=== PATIENT | female | born 1980 | race Caucasian/White ===

== ENCOUNTER 2016-09-17 15:01 | Inpatient (IN) ==
--- NOTE | 2016-09-17 15:11 | Emergency Department Note ---
Disposition Clinical Impression: Suicidal ideation Disposition: Admitted As Inpatient Referrals: NO,PCP [Primary Care Provider] - Forms: ED Satisfaction Letter Psych HPI - General Chief Complaint: ED Psychiatric Symptoms Stated Complaint: SI Source: EMS Mode of arrival: ambulatory Limitations: no limitations Nursing Notes Reviewed: Yes Vital Signs Reviewed: Yes - History of Present Illness Pt complaint: suicidal ideation, feels depressed If medical clearance, reason: psychiatric condition Onset (ago): day(s) (2) Duration: constant History of similar episodes: Yes Improves with: none Worsens with: none Context: significant life stressor (She was in senior care and if her somewhat of press charges she would have overdosed on pain pills) Alleged intoxication: No Associated Psychiatric Symptoms: depression, suicidal ideation Associated symptoms: Reports: denies other symptoms Traumatic symptoms: denies traumatic injury Treatments prior to arrival: other ([place] slipped by her psychiatrist) Self harm or harm to others: admits thoughts of self harm, has plan - Related Data Home Medications Medication Instructions Recorded Confirmed ClonazePAM [Klonopin] 1 mg PO TID PRN 03/11/15 09/17/16 Buspirone HCl [Buspar] 15 mg PO TID 09/17/16 09/17/16 Meloxicam [Meloxicam] 7.5 mg PO DAILY 09/17/16 09/17/16 Trazodone HCl 100 - 200 mg PO HS 09/17/16 09/17/16 Vortioxetine Hydrobromide 10 mg PO DAILY 09/17/16 09/17/16 [Trintellix] Allergies Allergy/AdvReac Type Severity Reaction Status Date / Time fluconazole [From Diflucan] Allergy Redness of Verified 09/17/16 15:08 Skin oxcarbazepine Allergy Redness of Verified 09/17/16 15:08 [From Trileptal] Skin All systems ED: reviewed and negative except as stated. Cardiovascular: Denies: chest pain Gastrointestinal: Reports: nausea Past Medical History - Past Medical History Source: patient, old records reviewed, nursing notes reviewed Medical history: Reports: no medical history Surgical history: Reports: non-contributory, cholecystectomy Psychiatric history: Reports: anxiety, depression PH[employer] history: Reports: no PH[employer]ER history - Social History Smoking Status: Current every day smoker Smokeless Tobacco Status: No Alcohol use: Reports: rarely Drug use: Reports: none Physical Exam - General Limitations: no limitations General appearance: alert, anxious - Head Head exam: atraumatic, normocephalic, normal inspection - Eye Eye exam: Present: normal appearance, PERRL, EOMI - Expanded Eye Exam Pupils: Left: reactive - ENT ENT exam: normal exam, normal oropharynx, mucous membranes moist - Expanded ENT Exam External ear exam: Present: normal external inspection Mouth exam: Present: normal external inspection Teeth exam: Present: normal inspection Throat exam: Present: normal inspection - Neck Neck exam: Present: normal inspection, full ROM, trachea midline - Chest Chest inspection: Present: normal inspection, symmetric chest wall rise - Respiratory Respiratory exam: Present: normal lung sounds bilaterally - Cardiovascular Cardiovascular exam: Present: regular rate, normal rhythm, normal heart sounds - Abdominal Exam Abdominal exam: Present: soft, Non-Tender. Absent: tenderness, distention, guarding, rebound, rigidity - Extremities Exam Extremities exam: Present: normal inspection, full ROM. Absent: tenderness, pedal edema - Expanded Upper Extremity Exam Shoulder exam: Present: normal inspection, full ROM Arm exam: Present: normal inspection, full ROM Elbow exam: Present: normal inspection, full ROM Forearm/Wrist exam: Present: normal inspection, full ROM Hand exam: Present: normal inspection, full ROM Vascular exam: Normal: capillary refill, radial pulse - Expanded Lower Extremity Exam Hip/Pelvis exam: Present: normal inspection, full ROM Upper leg exam: Present: normal inspection, full ROM Knee exam: Present: normal inspection, full ROM Lower leg exam: Present: normal inspection, full ROM Ankle exam: Present: normal inspection, full ROM Foot/toe exam: Present: normal inspection, full ROM Neurovascular/Tendon exam: Absent: motor deficit, sensory deficit, tendon deficit - Back Exam Back exam: Present: normal inspection, full ROM. Absent: tenderness - Neurological Exam Neurological exam: Present: alert, oriented X3 - Expanded Neurological Exam Patient oriented to: Present: person, place, time Coma Scale Eye Opening: Spontaneous Coma Scale Motor Response: Obeys Commands Coma Scale Verbal Response: Oriented Coma Scale Total: 15 - Psychiatric Psychiatric exam: Present: normal affect, normal mood - Skin Skin exam: Present: warm, dry, intact, normal color Course Vital Signs Temperature 98.1 F 09/17/16 15:02 Pulse Rate 79 09/17/16 15:02 Respiratory Rate 16 09/17/16 15:02 Blood Pressure 104/60 09/17/16 15:02 O2 Sat by Pulse Oximetry 99 09/17/16 15:02 Temperature 98.1 F 09/17/16 15:02 Pulse Rate 79 09/17/16 15:02 Respiratory Rate 16 09/17/16 15:02 Blood Pressure 104/60 09/17/16 15:02 O2 Sat by Pulse Oximetry 99 09/17/16 15:02 Oxygen Delivery Oxygen Delivery Room Air Psych - Lab Data Result diagrams: 09/17/16 15:36 09/17/16 15:36 Lab Results 09/17/16 09/17/16 09/17/16 Range/Units 15:22 15:22 15:22 WBC (4.3-11.1) K/mcL RBC (3.82-4.97) M/mcL Hgb (11.5-15.4) g/dL Hct (35.3-44.9) % MCV (83.0-100.0) fL MCH (28.0-33.3) pg MCHC (31.6-35.5) g/dL RDW (11.5-14.5) % Plt Count (140-400) K/mcL MPV (9.4-12.4) fL Immature Gran % (0-4) % Seg Neutrophils % % Lymphocytes % % Monocytes % % Eosinophils % % Basophils % % Neutrophils # (1.6-8.9) K/mcL Lymphocytes # (0.6-4.6) K/mcL Monocytes # (0.0-1.3) K/mcL Eosinophils # (0.0-0.6) K/mcL Basophils # (0.0-0.2) K/mcL Sodium (136-145) mEq/L Potassium (3.5-4.5) mEq/L Chloride (98-109) mEq/L Carbon Dioxide (19-29) mEq/L BUN (7-20) mg/dL Creatinine (0.57-1.11) mg/dL Est GFR ( Amer) (> 60) Est GFR (Non-Af Amer) (> 60) BUN/Creatinine Ratio (6-26) Glucose (70-99) mg/dL Calculated Osmolality (280-300) Calcium (8.6-10.8) mg/dL TSH (0.350-4.840) mcIU/mL Urine Color Yellow (Yellow) Urine Clarity Clear (Clear) Urine pH 6.5 (5.0-8.0) pH Units Ur Specific [place] 1.026 H (1.010-1.025) Urine Protein Negative (Neg-Trace) mg/dL Urine Glucose (UA) Normal (Normal) mg/dL Urine Ketones Trace H (Negative) mg/dL Urine Blood Negative (Negative) Urine Nitrite Negative (Negative) Urine Bilirubin Negative (Negative) Urine Urobilinogen Normal (Normal) mg/dL Ur Leukocyte Esterase Negative (Negative) Urine Test Negative (Negative) Salicylates (15-30) mg/dL Urine Opiates Screen Positive H (Cykhnx=230) ng/mL Acetaminophen (10-30) mcg/mL Ur Barbiturates Screen Negative (Xpdldg=587) ng/mL Ur Phencyclidine Scrn Negative (Cutoff=25) ng/mL Ur Amphetamines Screen Negative (Dbkwsi=2824) ng/mL U Benzodiazepines Scrn Positive H (Ywdxyr=354) ng/mL Urine Cocaine Screen Negative (Cutoff= 300) ng/mL U Marijuana (THC) Screen Negative (Cutoff = 50) ng/mL Ethyl Alcohol (0-10) mg/dL 09/17/16 09/17/16 Range/Units 15:36 15:36 WBC 8.9 (4.3-11.1) K/mcL RBC 5.08 H (3.82-4.97) M/mcL Hgb 14.7 (11.5-15.4) g/dL Hct 45.1 H (35.3-44.9) % MCV 88.8 (83.0-100.0) fL MCH 28.9 (28.0-33.3) pg MCHC 32.6 (31.6-35.5) g/dL RDW 12.3 (11.5-14.5) % Plt Count 162 (140-400) K/mcL MPV 10.2 (9.4-12.4) fL Immature Gran % 0.3 (0-4) % Seg Neutrophils % 71.7 % Lymphocytes % 19.5 % Monocytes % 6.8 % Eosinophils % 0.9 % Basophils % 0.8 % Neutrophils # 6.4 (1.6-8.9) K/mcL Lymphocytes # 1.7 (0.6-4.6) K/mcL Monocytes # 0.6 (0.0-1.3) K/mcL Eosinophils # 0.1 (0.0-0.6) K/mcL Basophils # 0.1 (0.0-0.2) K/mcL Sodium 138 (136-145) mEq/L Potassium 4.1 (3.5-4.5) mEq/L Chloride 106 (98-109) mEq/L Carbon Dioxide 26 (19-29) mEq/L BUN 16 (7-20) mg/dL Creatinine 0.94 (0.57-1.11) mg/dL Est GFR ( Amer) > 60 (> 60) Est GFR (Non-Af Amer) > 60 (> 60) BUN/Creatinine Ratio 17 (6-26) Glucose 89 (70-99) mg/dL Calculated Osmolality 287 (280-300) Calcium 9.1 (8.6-10.8) mg/dL TSH 0.442 (0.350-4.840) mcIU/mL Urine Color (Yellow) Urine Clarity (Clear) Urine pH (5.0-8.0) pH Units Ur Specific [place] (1.010-1.025) Urine Protein (Neg-Trace) mg/dL Urine Glucose (UA) (Normal) mg/dL Urine Ketones (Negative) mg/dL Urine Blood (Negative) Urine Nitrite (Negative) Urine Bilirubin (Negative) Urine Urobilinogen (Normal) mg/dL Ur Leukocyte Esterase (Negative) Urine Test (Negative) Salicylates < 5.0 L (15-30) mg/dL Urine Opiates Screen (Hfznnn=895) ng/mL Acetaminophen 3.0 L (10-30) mcg/mL Ur Barbiturates Screen (Mbcgze=554) ng/mL Ur Phencyclidine Scrn (Cutoff=25) ng/mL Ur Amphetamines Screen (Nwvgdp=3741) ng/mL U Benzodiazepines Scrn (Xdtcex=314) ng/mL Urine Cocaine Screen (Cutoff= 300) ng/mL U Marijuana (THC) Screen (Cutoff = 50) ng/mL Ethyl Alcohol < 10 (0-10) mg/dL Psychiatric Medical Clearance - Medical Clearance Checklist Medical History: No Social History Section defined Current Vitals: Last Vital Signs Temp 98.1 F 09/17/16 15:02 Pulse 79 09/17/16 15:02 Resp 16 09/17/16 15:02 BP 104/60 06/30/17 15:02 Pulse Ox 99 09/17/16 15:02 Psychiatric Lab Panel: Drug Levels and Toxicity 09/17/16 09/17/16 15:22 15:36 Urine Opiates Screen Positive H Acetaminophen 3.0 L Ur Barbiturates Screen Negative Ur Phencyclidine Scrn Negative Ur Amphetamines Screen Negative U Benzodiazepines Scrn Positive H Urine Cocaine Screen Negative U Marijuana (THC) Screen Negative Ethyl Alcohol < 10 Abnormal Labs: Abnormal lab results RBC 5.08 M/mcL (3.82-4.97) H 09/17/16 15:36 Hct 45.1 % (35.3-44.9) H 09/17/16 15:36 Ur Specific [place] 1.026 (1.010-1.025) H 09/17/16 15:22 Urine Ketones Trace mg/dL (Negative) H 09/17/16 15:22 Salicylates < 5.0 mg/dL (15-30) L 09/17/16 15:36 Urine Opiates Screen Positive ng/mL (Acbhkn=987) H 09/17/16 15:22 Acetaminophen 3.0 mcg/mL (10-30) L 09/17/16 15:36 U Benzodiazepines Scrn Positive ng/mL (Vemnov=527) H 09/17/16 15:22 Statement of Medical Clearance: I have evaluated the patient, reviewed diagnostic information, and certify that the patient's medical condition is sufficiently stable that transfer to the psychiatric unit does not pose a significant risk of deterioration.
[2016-09-17 15:48] LABS: Bilirubin,Urine Negative (Negative); Blood,Urine Negative (Negative); Clarity,Urine Clear (Clear); Color,Urine Yellow (Yellow); Glucose,Urine (UA) Normal (Normal); Ketones,Urine Trace mg/dL (Negative); Leukocyte Esterase,Urine Negative (Negative); Nitrite,Urine Negative (Negative); PH,Urine 6.5 pH Units (5.0-8.0); Protein,Urine Negative (Neg-Trace); Specific Gravity,Urine 1.026 (1.010-1.025); Urobilinogen,Urine Normal (Normal)
[2016-09-17 15:49] LABS: Basophils # 0.1 K/mcL (0.0-0.2); Basophils % 0.8 %; Eosinophils # 0.1 K/mcL (0.0-0.6); Eosinophils % 0.9 %; Hematocrit 45.1 % (35.3-44.9); Hemoglobin 14.7 g/dL (11.5-15.4); Immature Granulocytes % 0.3 % (0-4); Lymphocytes # 1.7 K/mcL (0.6-4.6); Lymphocytes % 19.5 %; Mean Corpuscular HGB Conc 32.6 g/dL (31.6-35.5); Mean Corpuscular Hemoglobin 28.9 pg (28.0-33.3); Mean Corpuscular Volume 88.8 fL (83.0-100.0); Mean Platelet Volume 10.2 fL (9.4-12.4); Monocytes # 0.6 K/mcL (0.0-1.3); Monocytes % 6.8 %; Neutrophils # 6.4 K/mcL (1.6-8.9); Platelet Count 162 K/mcL (140-400); Red Blood Count 5.08 M/mcL (3.82-4.97); Red Cell Distribution Width 12.3 % (11.5-14.5); Segmented Neutrophils % 71.7 %
[2016-09-17 15:54] LABS: Amphetamine Screen,Urine Negative ng/mL (Cutoff=1000); Barbiturate Screen,Urine Negative ng/mL (Cutoff=200); Benzodiazepines Screen,Urine Positive ng/mL (Cutoff=200); Cannabinoid Screen,Urine Negative ng/mL (Cutoff = 50); Cocaine Screen,Urine Negative ng/mL (Cutoff= 300); Opiate Screen,Urine Positive ng/mL (Cutoff=300); Phencyclidine Screen,Urine Negative ng/mL (Cutoff=25)
[2016-09-17 16:04] LABS: BUN/Creatinine Ratio 17 (6-26); Blood Urea Nitrogen 16 mg/dL (7-20); Calcium 9.1 mg/dL (8.6-10.8); Carbon Dioxide 26 mEq/L (19-29); Chloride 106 mEq/L (98-109); Glucose 89 mg/dL (70-99); Osmolality,Calculated 287 (280-300); Potassium 4.1 mEq/L (3.5-4.5); Sodium 138 mEq/L (136-145); eGFR For African Americans > 60 (> 60); eGFR For Non-African Americans > 60 (> 60)
[2016-09-17 16:06] LABS: Ethanol < 10 mg/dL (0-10); Salicylate < 5.0 mg/dL (15-30)
[2016-09-17 16:26] LABS: Thyroid Stimulating Hormone 0.442 mcIU/mL (0.350-4.840)
[2016-09-17] MEDS ORDERED: *HR* LORazepam 1 MG TABLET PO PRN (18:49)
[2016-09-17] MEDS ORDERED: Ibuprofen 400 MG TABLET PO PRN (18:49)
[2016-09-17] MEDS ORDERED: hydrOXYzine pamoate 25 MG CAPSULE PO PRN (18:49)
[2016-09-17] MEDS ORDERED: Mag Hydrox/Al Hydrox/Simeth 30 ML UDC PO PRN (18:49)
[2016-09-17] MEDS ORDERED: MOM Conc 10 ML UD.LIQ PO PRN (18:49)
[2016-09-17] MEDS ORDERED: traZODone 50 MG TABLET PO PRN (18:49)
[2016-09-17] MEDS ORDERED: *HR* LORazepam 2 MG/ML VIAL IM PRN (18:49)
[2016-09-17] MEDS ORDERED: Haloperidol Lactate 5 MG/ML VIAL IM PRN (18:49)
[2016-09-18] MEDS ORDERED: TRINTELLIX PO SCH (09:00)
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
[2016-09-18] MEDS: TRINTELLIX PO SCH (14:19)
[2016-09-18] MEDS: clonazePAM 1 MG TABLET PO PRN ×2 (14:25→21:07)
[2016-09-18] MEDS ORDERED: traZODone 50 MG TABLET PO SCH (21:00)
[2016-09-19] MEDS: clonazePAM 1 MG TABLET PO PRN (08:45)
[2016-09-19] MEDS: TRINTELLIX PO SCH (08:45)
[2016-09-19 09:45] VITALS: BP 94/60
--- NOTE | 2016-09-19 13:28 | Discharge Summary ---
Date of Encounter: 09/19/16 Time of Encounter: 13:00 Diagnosis - Discharge Diagnosis (1) Major depressive disorder, recurrent severe without psychotic features Status: Acute (2) Anxiety Status: Chronic (3) Borderline personality disorder Status: Chronic Medications - Discharge Medications ClonazePAM [Klonopin] 1 mg PO TID PRN 03/11/15 [History] Buspirone HCl [Buspar] 15 mg PO TID 09/17/16 [History] Meloxicam 7.5 mg PO DAILY 09/17/16 [History] Trazodone HCl 100 - 200 mg PO HS 09/17/16 [History] Vortioxetine Hydrobromide [Trintellix] 10 mg PO DAILY 09/17/16 [History] Patient Taking Own Medication 0 each PO DAILY each 09/19/16 [Rx] Allergies fluconazole [From Diflucan] Allergy (Verified 09/17/16 15:08) Redness of Skin burn oxcarbazepine [From Trileptal] Allergy (Verified 09/17/16 15:08) Redness of Skin burn Provider Date of admission: 09/17/16 18:21 Primary care physician: PCP KASSIE Discharging clinician: Mary Colon Assessment and Plan - Patient/Caregiver Discharge Instructions Activity: resume usual activities as tolerated Diet: regular diet - Follow up Plan Follow up with: KASSIE,PCP [Primary Care Provider] - Overall status at discharge: patient is back to baseline Disposition: Home, Self-Care Hospital Course Hospital course: Ms. Bridges is a 36 year old female with a history of depression, anxiety and borderline personality disorder who presented to the hospital having overdosed a few days prior to her about medication and was voicing suicidal ideations prior to admission. She was admitted to [facility] for psychiatric stabilization. Patient was incorporated into the therapeutic milieu and offer group and individual as well as recreational therapies. Patient was also offered psychoeducational materials and supportive therapy. She was placed on suicide precautions and close observation per unit protocol. Patient denied suicidal ideation on admission but did report a lot of increased stressors. Patient's significant other was contacted and all of stockpiled medication was removed from the home. Patient's girlfriend will from this point on distributing the patient's meds for her. There is also a gun in the home that was removed. Throughout the course of the hospital stay the patient's mood improved. She states that a big part of her stress was her court date on Tuesday and feeling upset about her son not having contact with her anymore. She is looking forward to spending the next week with her significant other and she denies any suicidal or homicidal ideation or plan. Her movements were continued during the hospital stay. She denied desire to change current medications because most of her stress was from recent family issues and not related to medication issues. She will be discharged in stable condition into the care of her significant other and outpatient follow-up appointments will be moved forward in order to monitor the patient more closely. She does have a follow-up at [facility] for her therapy. - Time Spent with Patient Total time spent providing and/or coordinating discharge services: Greater than 30 minutes Quality - Multiple Antipsychotics Patient discharged on 2 or more antipsychotic medications: No Procedures - Procedures Procedures: Medication Management, Crisis Stabilization, Supportive Therapy, Group Therapy, Psychoeducational Therapy Mental Status Exam - Mental Status Exam Patient orientation: Yes Person, Yes Time, Yes Place Level of alertness: Alert Patient appearance: Appropriate, Well Groomed Behavior: calm, cooperative Psychomotor activity: Normal Eye contact: Maintains Eye Contact Mood description: Euthymic/stable Affect description: congruent with mood, full range Speech pattern: Normal rate, Normal rhythm, Normal tone Speech Volume: Normal Thought process: Intact, Linear, Goal Oriented Thought Content: No Suicidal ideation, No Homicidal ideation, No Overt delusions Perceptual Disturbances: No Auditory hallucinations, No Visual hallucinations Judgment: Limited Insight: Partial
== END 2016-09-19 14:35 | disposition home or self-care (01) ==
LOC: EMEROO 15:01 → 1ANU 18:21 → SUATTDRO 18:21 → 1ANU 18:25
PROVIDERS: ADMIT Psychiatry & Neurology Psychiatry; ATTEND Student in an Organized Health Care Education/Training Program

== ENCOUNTER 2017-10-17 20:12 | Observation (INO) ==
--- NOTE | 2017-10-17 20:20 | Emergency Department Note ---
Overdose - [facility] Narrative Medical decision making narrative: Poison control center called. They recommended basic tox workup including EKG, aspirin, Tylenol, alcohol, urinalysis and urine drug screen, urine . They also recommended supportive care. We will perform workup, suicide precautions in place. Patient will need to be admitted for further care. - Medical Records Medical records reviewed: Yes I reviewed the patient's medical records. - Lab Data Lab results reviewed: Yes I reviewed the patient's lab results. Result diagrams: 10/17/17 20:20 10/17/17 20:20 Lab Results 10/17/17 10/17/17 10/17/17 Range/Units 20:20 20:20 20:20 WBC 8.0 (4.3-11.1) K/mcL RBC 4.86 (3.82-4.97) M/mcL Hgb 14.7 (11.5-15.4) g/dL Hct 42.7 (35.3-44.9) % MCV 87.9 (83.0-100.0) fL MCH 30.2 (28.0-33.3) pg MCHC 34.4 (31.6-35.5) g/dL RDW 12.7 (11.5-14.5) % Plt Count 141 (140-400) K/mcL MPV 9.9 (9.4-12.4) fL Immature Gran % 0.3 (0-4) % Seg Neutrophils % 54.6 % Lymphocytes % 35.1 % Monocytes % 8.3 % Eosinophils % 0.9 % Basophils % 0.8 % Neutrophils # 4.4 (1.6-8.9) K/mcL Lymphocytes # 2.8 (0.6-4.6) K/mcL Monocytes # 0.7 (0.0-1.3) K/mcL Eosinophils # 0.1 (0.0-0.6) K/mcL Basophils # 0.1 (0.0-0.2) K/mcL Sodium 137 (136-145) mEq/L Potassium 3.3 L (3.5-5.1) mEq/L Chloride 106 (98-107) mEq/L Carbon Dioxide 22 L (23-29) mEq/L BUN 12 (6-20) mg/dL Creatinine 0.88 (0.60-1.20) mg/dL Est GFR ( Amer) > 60 (> 60) Est GFR (Non-Af Amer) > 60 (> 60) BUN/Creatinine Ratio 14 (6-26) Glucose 184 H (70-105) mg/dL Calculated Osmolality 289 (280-300) Calcium 9.1 (8.6-10.3) mg/dL Total Bilirubin 0.6 (0.3-1.0) mg/dL Direct Bilirubin 0.1 (0.0-0.2) mg/dL Indirect Bilirubin 0.5 (0.0-1.2) mg/dL AST 17 (13-39) Units/L ALT 16 (7-52) Units/L Alkaline Phosphatase 65 (34-104) Units/L Serum Total Protein 6.5 (6.4-8.9) g/dL Albumin 4.2 (3.5-5.7) g/dL Globulin 2.3 L (2.4-3.5) g/dL Albumin/Globulin Ratio 1.8 (1.1-2.2) Urine Color (Yellow) Urine Clarity (Clear) Urine pH (5.0-8.0) pH Units Ur Specific [place] (1.010-1.025) Urine Protein (Neg-Trace) mg/dL Urine Glucose (UA) (Normal) mg/dL Urine Ketones (Negative) mg/dL Urine Blood (Negative) Urine Nitrite (Negative) Urine Bilirubin (Negative) Urine Urobilinogen (Normal) mg/dL Ur Leukocyte Esterase (Negative) Urine Microscopic RBC (0-3) per hpf Urine Microscopic WBC (0-3) per hpf Ur Squamous Epith Cells (None-Few) per lpf Urine Bacteria (None-Few) per hpf Hyaline Casts (None-Few) per lpf Urine Test (Negative) Salicylates < 2.5 L (15.0-30.0) mg/dL Urine Opiates Screen Positive H (Zlcjfv=129) ng/mL Acetaminophen < 10 L (10-20) mcg/mL Ur Barbiturates Screen Negative (Rdohxv=061) ng/mL Ur Phencyclidine Scrn Negative (Cutoff=25) ng/mL Ur Amphetamines Screen Negative (Doebht=1657) ng/mL U Benzodiazepines Scrn Positive H (Trclxo=222) ng/mL Urine Cocaine Screen Negative (Cutoff= 300) ng/mL U Marijuana (THC) Screen Negative (Cutoff = 50) ng/mL Ur Drug Screen Interp See Below Ethyl Alcohol < 10 (Less than 10) mg/dL 10/17/17 10/17/17 Range/Units 21:00 21:00 WBC (4.3-11.1) K/mcL RBC (3.82-4.97) M/mcL Hgb (11.5-15.4) g/dL Hct (35.3-44.9) % MCV (83.0-100.0) fL MCH (28.0-33.3) pg MCHC (31.6-35.5) g/dL RDW (11.5-14.5) % Plt Count (140-400) K/mcL MPV (9.4-12.4) fL Immature Gran % (0-4) % Seg Neutrophils % % Lymphocytes % % Monocytes % % Eosinophils % % Basophils % % Neutrophils # (1.6-8.9) K/mcL Lymphocytes # (0.6-4.6) K/mcL Monocytes # (0.0-1.3) K/mcL Eosinophils # (0.0-0.6) K/mcL Basophils # (0.0-0.2) K/mcL Sodium (136-145) mEq/L Potassium (3.5-5.1) mEq/L Chloride (98-107) mEq/L Carbon Dioxide (23-29) mEq/L BUN (6-20) mg/dL Creatinine (0.60-1.20) mg/dL Est GFR ( Amer) (> 60) Est GFR (Non-Af Amer) (> 60) BUN/Creatinine Ratio (6-26) Glucose (70-105) mg/dL Calculated Osmolality (280-300) Calcium (8.6-10.3) mg/dL Total Bilirubin (0.3-1.0) mg/dL Direct Bilirubin (0.0-0.2) mg/dL Indirect Bilirubin (0.0-1.2) mg/dL AST (13-39) Units/L ALT (7-52) Units/L Alkaline Phosphatase (34-104) Units/L Serum Total Protein (6.4-8.9) g/dL Albumin (3.5-5.7) g/dL Globulin (2.4-3.5) g/dL Albumin/Globulin Ratio (1.1-2.2) Urine Color Yellow (Yellow) Urine Clarity Clear (Clear) Urine pH 6.0 (5.0-8.0) pH Units Ur Specific [place] 1.022 (1.010-1.025) Urine Protein 30 H (Neg-Trace) mg/dL Urine Glucose (UA) Normal (Normal) mg/dL Urine Ketones Negative (Negative) mg/dL Urine Blood Negative (Negative) Urine Nitrite Negative (Negative) Urine Bilirubin Small H (Negative) Urine Urobilinogen Normal (Normal) mg/dL Ur Leukocyte Esterase Negative (Negative) Urine Microscopic RBC 3-5 H (0-3) per hpf Urine Microscopic WBC 0-3 (0-3) per hpf Ur Squamous Epith Cells Many H (None-Few) per lpf Urine Bacteria None Seen (None-Few) per hpf Hyaline Casts None Seen (None-Few) per lpf Urine Test Negative (Negative) Salicylates (15.0-30.0) mg/dL Urine Opiates Screen (Klmmeg=614) ng/mL Acetaminophen (10-20) mcg/mL Ur Barbiturates Screen (Wtigvj=931) ng/mL Ur Phencyclidine Scrn (Cutoff=25) ng/mL Ur Amphetamines Screen (Btpvrv=8438) ng/mL U Benzodiazepines Scrn (Wfxkxr=557) ng/mL Urine Cocaine Screen (Cutoff= 300) ng/mL U Marijuana (THC) Screen (Cutoff = 50) ng/mL Ur Drug Screen Interp Ethyl Alcohol (Less than 10) mg/dL Overdose HPI - General Chief Complaint: ED Overdose Stated Complaint: OD Time Seen by Provider: 10/17/17 20:16 Source: patient Mode of arrival: wheelchair Limitations: no limitations Nursing Notes Reviewed: Yes Vital Signs Reviewed: Yes - History of Present Illness HPI Narrative: Patient is a 37-year-old female with past medical history of suicide attempt, anxiety and depression. She presents today due to overdose. She arrives via wheelchair, somnolent but arousable to verbal stimulation. She states that she took 30 tablets of 1 mg Klonopin, 7 trazodone, 3 Ativan. She states that she took these medications to "numb the pain." Denies any other drug or alcohol use. No other self-harm. Refusing to answer any other review of system questions. Pt Subjective Complaint: intentional overdose - Related Data Home Medications Medication Instructions Recorded Confirmed Betamethasone Dipropionate 1 appl TP AD 10/17/17 10/17/17 Buspirone HCl [Buspar] 15 mg PO TID PRN 10/17/17 10/17/17 Meloxicam [Meloxicam] 7.5 mg PO DAILY 10/17/17 10/17/17 Trazodone HCl 100 - 200 mg PO HS 10/17/17 10/17/17 Venlafaxine HCl [Venlafaxine HCl 75 mg PO DAILY 10/17/17 10/17/17 ER] clonazePAM [Klonopin] 1 mg PO TID PRN 10/17/17 10/17/17 Allergies Allergy/AdvReac Type Severity Reaction Status Date / Time fluconazole [From Diflucan] Allergy Redness of Verified 03/06/17 19:15 Skin oxcarbazepine Allergy Redness of Verified 03/06/17 19:15 [From Trileptal] Skin Limitations: ROS unobtainable due to patients medical condition Past Medical History - Past Medical History Attestation: Yes The following information was validated with the patient. Source: patient Medical history: Reports: non-contributory Surgical history: Reports: non-contributory, cholecystectomy Psychiatric history: Reports: prior suicide attempt, previous psychiatric hospitalization GASOLINE FINISHER history: Reports: no GASOLINE FINISHER history - Social History Smoking Status: Current every day smoker Smokeless Tobacco Status: No Alcohol use: Reports: none Drug use: Reports: none Physical Exam - General General appearance: other (Somnolent but easily arousable to verbal stimulation) - Head Head exam: atraumatic, normocephalic, normal inspection - Eye Eye exam: Present: normal appearance, PERRL, EOMI - ENT ENT exam: normal exam, normal oropharynx, mucous membranes moist - Neck Neck exam: Present: normal inspection, full ROM, trachea midline - Chest Chest inspection: Present: normal inspection, symmetric chest wall rise - Respiratory Respiratory exam: Present: normal lung sounds bilaterally - Cardiovascular Cardiovascular exam: Present: regular rate, normal rhythm, normal heart sounds - Abdominal Exam Abdominal exam: Present: soft, Non-Tender. Absent: tenderness, distention, guarding, rebound, rigidity - Extremities Exam Extremities exam: Present: normal inspection, full ROM. Absent: tenderness, pedal edema - Neurological Exam Neurological exam: Present: CN II-XII intact, other (Somnolent but easily arousable to verbal stimulation, answering questions appropriately). Absent: motor sensory deficit - Expanded Neurological Exam Coma Scale Eye Opening: To Voice Coma Scale Motor Response: Obeys Commands Coma Scale Verbal Response: Oriented Coma Scale Total: 14 - Psychiatric Psychiatric exam: Present: normal affect, normal mood - Skin Skin exam: Present: warm, dry, intact, normal color Course Course Narrative: Poison control center called. They recommended basic tox workup including EKG, aspirin, Tylenol, alcohol, urinalysis and urine drug screen, urine . They also recommended supportive care. We will perform workup, suicide precautions in place. Patient will need to be admitted for further care. Vital Signs Temperature 97.6 F 10/17/17 20:21 Pulse Rate 87 10/17/17 20:21 Respiratory Rate 14 10/17/17 20:21 Blood Pressure 99/66 10/17/17 20:21 O2 Sat by Pulse Oximetry 94 10/17/17 20:21 Temperature 97.6 F 10/17/17 20:21 Pulse Rate 68 10/17/17 21:42 Respiratory Rate 14 10/17/17 21:42 Blood Pressure 95/67 10/17/17 21:42 O2 Sat by Pulse Oximetry 98 10/17/17 21:42 Oxygen Delivery Oxygen Delivery Room Air Disposition Clinical Impression: Suicide attempt Benzodiazepine (tranquilizer) overdose Qualifiers: Encounter type: initial encounter Injury intent: intentional self-harm Qualified Code(s): T42.4X2A - Poisoning by benzodiazepines, intentional self- harm, initial encounter Disposition: Admitted As Inpatient Condition: Fair Referrals: NONE,PCP [Primary Care Provider] - Forms: ED Satisfaction Letter Time of Disposition: 20:33 S.B.A.R. - S.B.A.R. Situation: Demographics, MOA Background: Presenting Complaint, Relevant PMH, Meds, & Allergies Assessment: Vital Signs, Course and respsone to treatment, Exam Concerns, Patient/Family Expectation, Pertinant Lab Results Recommendation: Barrier(s) to disposition, Recommendation based on pending studies, treatments, or consults S.B.A.R. Report Given to: Dr. Singleton
--- NOTE | 2017-10-17 20:24 | Emergency Department Note ---
Disposition Clinical Impression: Suicide attempt Benzodiazepine (tranquilizer) overdose Qualifiers: Encounter type: initial encounter Injury intent: intentional self-harm Qualified Code(s): T42.4X2A - Poisoning by benzodiazepines, intentional self- harm, initial encounter Disposition: Admitted As Inpatient Condition: Fair Forms: ED Satisfaction Letter General Adult HPI - General Chief complaint: ED Overdose Stated complaint: OD Time Seen by Provider: 10/17/17 20:16 - Related Data Home Medications Medication Instructions Recorded Confirmed Betamethasone Dipropionate 1 appl TP AD 10/17/17 10/17/17 Buspirone HCl [Buspar] 15 mg PO TID PRN 10/17/17 10/17/17 Meloxicam [Meloxicam] 7.5 mg PO DAILY 10/17/17 10/17/17 Trazodone HCl 100 - 200 mg PO HS 10/17/17 10/17/17 Venlafaxine HCl [Venlafaxine HCl 75 mg PO DAILY 10/17/17 10/17/17 ER] clonazePAM [Klonopin] 1 mg PO TID PRN 10/17/17 10/17/17 Allergies Allergy/AdvReac Type Severity Reaction Status Date / Time fluconazole [From Diflucan] Allergy Redness of Verified 03/06/17 19:15 Skin oxcarbazepine Allergy Redness of Verified 03/06/17 19:15 [From Trileptal] Skin Past Medical History - Past Medical History Medical history: Reports: non-contributory Surgical history: Reports: non-contributory, cholecystectomy Psychiatric history: Reports: prior suicide attempt, previous psychiatric hospitalization VP CLINICAL history: Reports: no VP CLINICAL history - Social History Smoking Status: Current every day smoker Smokeless Tobacco Status: No Alcohol use: Reports: none Drug use: Reports: none Course - Consultations Consultation #1: Dr Delatorre accepts Time: 22:04 Vital Signs Temperature 97.6 F 10/17/17 20:21 Pulse Rate 87 10/17/17 20:21 Respiratory Rate 14 10/17/17 20:21 Blood Pressure 99/66 10/17/17 20:21 O2 Sat by Pulse Oximetry 94 10/17/17 20:21 Temperature 97.6 F 10/17/17 20:21 Pulse Rate 68 10/17/17 21:42 Respiratory Rate 14 10/17/17 21:42 Blood Pressure 95/67 10/17/17 21:42 O2 Sat by Pulse Oximetry 98 10/17/17 21:42 Oxygen Delivery Oxygen Delivery Room Air Medical Decision Making - Lab Data Result diagrams: 10/17/17 20:20 10/17/17 20:20 Lab Results 10/17/17 10/17/17 10/17/17 Range/Units 20:20 20:20 20:20 WBC 8.0 (4.3-11.1) K/mcL RBC 4.86 (3.82-4.97) M/mcL Hgb 14.7 (11.5-15.4) g/dL Hct 42.7 (35.3-44.9) % MCV 87.9 (83.0-100.0) fL MCH 30.2 (28.0-33.3) pg MCHC 34.4 (31.6-35.5) g/dL RDW 12.7 (11.5-14.5) % Plt Count 141 (140-400) K/mcL MPV 9.9 (9.4-12.4) fL Immature Gran % 0.3 (0-4) % Seg Neutrophils % 54.6 % Lymphocytes % 35.1 % Monocytes % 8.3 % Eosinophils % 0.9 % Basophils % 0.8 % Neutrophils # 4.4 (1.6-8.9) K/mcL Lymphocytes # 2.8 (0.6-4.6) K/mcL Monocytes # 0.7 (0.0-1.3) K/mcL Eosinophils # 0.1 (0.0-0.6) K/mcL Basophils # 0.1 (0.0-0.2) K/mcL Sodium 137 (136-145) mEq/L Potassium 3.3 L (3.5-5.1) mEq/L Chloride 106 (98-107) mEq/L Carbon Dioxide 22 L (23-29) mEq/L BUN 12 (6-20) mg/dL Creatinine 0.88 (0.60-1.20) mg/dL Est GFR ( Amer) > 60 (> 60) Est GFR (Non-Af Amer) > 60 (> 60) BUN/Creatinine Ratio 14 (6-26) Glucose 184 H (70-105) mg/dL Calculated Osmolality 289 (280-300) Calcium 9.1 (8.6-10.3) mg/dL Total Bilirubin 0.6 (0.3-1.0) mg/dL Direct Bilirubin 0.1 (0.0-0.2) mg/dL Indirect Bilirubin 0.5 (0.0-1.2) mg/dL AST 17 (13-39) Units/L ALT 16 (7-52) Units/L Alkaline Phosphatase 65 (34-104) Units/L Serum Total Protein 6.5 (6.4-8.9) g/dL Albumin 4.2 (3.5-5.7) g/dL Globulin 2.3 L (2.4-3.5) g/dL Albumin/Globulin Ratio 1.8 (1.1-2.2) Urine Color (Yellow) Urine Clarity (Clear) Urine pH (5.0-8.0) pH Units Ur Specific [place] (1.010-1.025) Urine Protein (Neg-Trace) mg/dL Urine Glucose (UA) (Normal) mg/dL Urine Ketones (Negative) mg/dL Urine Blood (Negative) Urine Nitrite (Negative) Urine Bilirubin (Negative) Urine Urobilinogen (Normal) mg/dL Ur Leukocyte Esterase (Negative) Urine Microscopic RBC (0-3) per hpf Urine Microscopic WBC (0-3) per hpf Ur Squamous Epith Cells (None-Few) per lpf Urine Bacteria (None-Few) per hpf Hyaline Casts (None-Few) per lpf Urine Test (Negative) Salicylates < 2.5 L (15.0-30.0) mg/dL Urine Opiates Screen Positive H (Zfkyne=199) ng/mL Acetaminophen < 10 L (10-20) mcg/mL Ur Barbiturates Screen Negative (Sfsttm=818) ng/mL Ur Phencyclidine Scrn Negative (Cutoff=25) ng/mL Ur Amphetamines Screen Negative (Btlcrd=8735) ng/mL U Benzodiazepines Scrn Positive H (Nhtpjh=944) ng/mL Urine Cocaine Screen Negative (Cutoff= 300) ng/mL U Marijuana (THC) Screen Negative (Cutoff = 50) ng/mL Ur Drug Screen Interp See Below Ethyl Alcohol < 10 (Less than 10) mg/dL 10/17/17 10/17/17 Range/Units 21:00 21:00 WBC (4.3-11.1) K/mcL RBC (3.82-4.97) M/mcL Hgb (11.5-15.4) g/dL Hct (35.3-44.9) % MCV (83.0-100.0) fL MCH (28.0-33.3) pg MCHC (31.6-35.5) g/dL RDW (11.5-14.5) % Plt Count (140-400) K/mcL MPV (9.4-12.4) fL Immature Gran % (0-4) % Seg Neutrophils % % Lymphocytes % % Monocytes % % Eosinophils % % Basophils % % Neutrophils # (1.6-8.9) K/mcL Lymphocytes # (0.6-4.6) K/mcL Monocytes # (0.0-1.3) K/mcL Eosinophils # (0.0-0.6) K/mcL Basophils # (0.0-0.2) K/mcL Sodium (136-145) mEq/L Potassium (3.5-5.1) mEq/L Chloride (98-107) mEq/L Carbon Dioxide (23-29) mEq/L BUN (6-20) mg/dL Creatinine (0.60-1.20) mg/dL Est GFR ( Amer) (> 60) Est GFR (Non-Af Amer) (> 60) BUN/Creatinine Ratio (6-26) Glucose (70-105) mg/dL Calculated Osmolality (280-300) Calcium (8.6-10.3) mg/dL Total Bilirubin (0.3-1.0) mg/dL Direct Bilirubin (0.0-0.2) mg/dL Indirect Bilirubin (0.0-1.2) mg/dL AST (13-39) Units/L ALT (7-52) Units/L Alkaline Phosphatase (34-104) Units/L Serum Total Protein (6.4-8.9) g/dL Albumin (3.5-5.7) g/dL Globulin (2.4-3.5) g/dL Albumin/Globulin Ratio (1.1-2.2) Urine Color Yellow (Yellow) Urine Clarity Clear (Clear) Urine pH 6.0 (5.0-8.0) pH Units Ur Specific [place] 1.022 (1.010-1.025) Urine Protein 30 H (Neg-Trace) mg/dL Urine Glucose (UA) Normal (Normal) mg/dL Urine Ketones Negative (Negative) mg/dL Urine Blood Negative (Negative) Urine Nitrite Negative (Negative) Urine Bilirubin Small H (Negative) Urine Urobilinogen Normal (Normal) mg/dL Ur Leukocyte Esterase Negative (Negative) Urine Microscopic RBC 3-5 H (0-3) per hpf Urine Microscopic WBC 0-3 (0-3) per hpf Ur Squamous Epith Cells Many H (None-Few) per lpf Urine Bacteria None Seen (None-Few) per hpf Hyaline Casts None Seen (None-Few) per lpf Urine Test Negative (Negative) Salicylates (15.0-30.0) mg/dL Urine Opiates Screen (Blweml=371) ng/mL Acetaminophen (10-20) mcg/mL Ur Barbiturates Screen (Qanycq=191) ng/mL Ur Phencyclidine Scrn (Cutoff=25) ng/mL Ur Amphetamines Screen (Jtalwy=8414) ng/mL U Benzodiazepines Scrn (Csoisg=073) ng/mL Urine Cocaine Screen (Cutoff= 300) ng/mL U Marijuana (THC) Screen (Cutoff = 50) ng/mL Ur Drug Screen Interp Ethyl Alcohol (Less than 10) mg/dL Attestation Statement - Attestation Attestation: I examined this patient and my medical decision-making was reviewed with the Resident Physician. I agree with the documented findings, disposition and treatment plan as described except to the extent set forth below. Patient presents to the ED with an intentional overdose. Patient states she took the medicine to "numb the pain." History of prior suicide attempts. Patient states she took 7 trazodone of unknown strength. She took 31 mg Klonopin's. She also took 3 Ativan and of unknown strength. She took 45 minutes prior to arrival. On examination she is laying in the bed. Somnolent but arousable with verbal stimulation. Oriented and appropriate. No signs of trauma. She did have a clear patch on her left upper arm was removed. Plan. Suicide precautions. Altered mental status workup. Admission. Stressing with poison control. Discussing with poison control. Patient has been observed for 2 hours with no declined. She arouses and is and is appropriate and maintaining her airway. Discussed with the hospitalist who will admit.
[2017-10-17 20:36] LABS: Basophils # 0.1 K/mcL (0.0-0.2); Basophils % 0.8 %; Eosinophils # 0.1 K/mcL (0.0-0.6); Eosinophils % 0.9 %; Hematocrit 42.7 % (35.3-44.9); Hemoglobin 14.7 g/dL (11.5-15.4); Immature Granulocytes % 0.3 % (0-4); Lymphocytes # 2.8 K/mcL (0.6-4.6); Lymphocytes % 35.1 %; Mean Corpuscular HGB Conc 34.4 g/dL (31.6-35.5); Mean Corpuscular Hemoglobin 30.2 pg (28.0-33.3); Mean Corpuscular Volume 87.9 fL (83.0-100.0); Mean Platelet Volume 9.9 fL (9.4-12.4); Monocytes # 0.7 K/mcL (0.0-1.3); Monocytes % 8.3 %; Neutrophils # 4.4 K/mcL (1.6-8.9); Platelet Count 141 K/mcL (140-400); Red Blood Count 4.86 M/mcL (3.82-4.97); Red Cell Distribution Width 12.7 % (11.5-14.5); Segmented Neutrophils % 54.6 %
[2017-10-17] MEDS ORDERED: 0.9 % Sodium Chloride 1,000 ML IVC ONE (20:36)
[2017-10-17] MEDS ORDERED: 0.9 % Sodium Chloride 1,000 ML ONE (20:37)
[2017-10-17 20:54] LABS: Acetaminophen < 10 mcg/mL (10-20); Alanine Aminotransferase 16 Units/L (7-52); Albumin 4.2 g/dL (3.5-5.7); Albumin/Globulin Ratio 1.8 (1.1-2.2); Alkaline Phosphatase 65 Units/L (34-104); Aspartate Amino Transferase 17 Units/L (13-39); BUN/Creatinine Ratio 14 (6-26); Bilirubin,Direct 0.1 mg/dL (0.0-0.2); Bilirubin,Indirect 0.5 mg/dL (0.0-1.2); Bilirubin,Total 0.6 mg/dL (0.3-1.0); Blood Urea Nitrogen 12 mg/dL (6-20); Calcium 9.1 mg/dL (8.6-10.3); Carbon Dioxide 22 mEq/L (23-29); Chloride 106 mEq/L (98-107); Ethanol < 10 mg/dL (Less than 10); Globulin 2.3 g/dL (2.4-3.5); Glucose 184 mg/dL (70-105); Osmolality,Calculated 289 (280-300); Potassium 3.3 mEq/L (3.5-5.1); Sodium 137 mEq/L (136-145); Total Protein 6.5 g/dL (6.4-8.9); eGFR For Non-African Americans > 60 (> 60)
[2017-10-17 20:55] LABS: Salicylate < 2.5 mg/dL (15.0-30.0)
[2017-10-17 21:31] LABS: Bacteria,Urine None Seen per hpf (None-Few); Clarity,Urine Clear (Clear); Color,Urine Yellow (Yellow); Glucose,Urine (UA) Normal (Normal); Hyaline Casts,Urine None Seen per lpf (None-Few); Protein,Urine 30 mg/dL (Neg-Trace); Specific Gravity,Urine 1.022 (1.010-1.025); Squamous Epithelial Cell,Urine Many per lpf (None-Few); Urobilinogen,Urine Normal (Normal); WBC,Urine 0-3 per hpf (0-3)
[2017-10-17 21:32] LABS: Bilirubin,Urine Small (Negative); Blood,Urine Negative (Negative); Ketones,Urine Negative (Negative); Nitrite,Urine Negative (Negative)
[2017-10-17 21:33] LABS: Leukocyte Esterase,Urine Negative (Negative)
[2017-10-17 21:45] LABS: Amphetamine Screen,Urine Negative ng/mL (Cutoff=1000); Barbiturate Screen,Urine Negative ng/mL (Cutoff=200); Benzodiazepines Screen,Urine Positive ng/mL (Cutoff=200); Cannabinoid Screen,Urine Negative ng/mL (Cutoff = 50); Cocaine Screen,Urine Negative ng/mL (Cutoff= 300); Opiate Screen,Urine Positive ng/mL (Cutoff=300); Phencyclidine Screen,Urine Negative ng/mL (Cutoff=25)
[2017-10-17] MEDS ORDERED: Potassium Chloride 20 MEQ, Lidocaine 1% 2 ML in D5% in Water 250 ML IVPB ONE (22:00)
[2017-10-18] MEDS ORDERED: Naloxone 0.4 MG/ML INJ IVP PRN (02:27)
[2017-10-18 04:41] LABS: Hematocrit 38.4 % (35.3-44.9); Mean Corpuscular HGB Conc 33.3 g/dL (31.6-35.5); Mean Corpuscular Hemoglobin 29.4 pg (28.0-33.3); Mean Corpuscular Volume 88.1 fL (83.0-100.0); Mean Platelet Volume 10.4 fL (9.4-12.4); Platelet Count 145 K/mcL (140-400); Red Blood Count 4.36 M/mcL (3.82-4.97); Red Cell Distribution Width 12.7 % (11.5-14.5)
[2017-10-18 04:42] LABS: Hemoglobin 12.8 g/dL (11.5-15.4)
[2017-10-18 05:00] LABS: BUN/Creatinine Ratio 15 (6-26); Blood Urea Nitrogen 10 mg/dL (6-20); Calcium 8.4 mg/dL (8.6-10.3); Carbon Dioxide 23 mEq/L (23-29); Chloride 112 mEq/L (98-107); Glucose 83 mg/dL (70-105); Osmolality,Calculated 286 (280-300); Sodium 139 mEq/L (136-145); eGFR For Non-African Americans > 60 (> 60)
--- NOTE | 2017-10-18 06:39 | Internal Med History&Physical ---
Date of Encounter: 10/17/17 Time of Encounter: 23:00 Internal Medicine - H&P: HPI Chief complaint: Overdose Admitted From: Home History of present illness: Ms. rBidges is a 37 year old female Patient seen in the emergency room after intentionally taking multiple medications. According to ER records patient is 31 total milligrams of Klonopin , 3 Ativan and 7 trazodone pills of unknown strength. She arrived to the emergency room by wheelchair, and stated that she took the medicine to 'try to numb the pain.' She has history of suicidal attempts in the past. Poison control was called in the emergency room and they recommended the patient be observed in the hospital. Upon my evaluation patient denied being in pain and stated that she felt very tired. She appeared to be resting comfortably plan, and had no complaints. Past Med Surg Social Fam HX - Past Medical History Medical history: non-contributory Additional medical history: gastritis Psychiatric history: prior suicide attempt, previous psychiatric hospitalization - Past Surgical History Surgical History: non-contributory, cholecystectomy Additional surgical history: L hip surgery. saccryl and lumbar injections for pain - Social History Smoking Status: Current every day smoker Smokeless Tobacco Status: No Alcohol use: none Drug use: none - Family History Father Adopted: [place]: JEAN-PAUL Family Member Ethnicity: Non- Living Status: Age at : 68 Cause of : LUNG CANCER Hx Family Cardiac Disorders: Yes (HEART DISEASE) Hx Family Respiratory Disorders: No Hx Family Cancer: Yes (LUNG CA) Hx Family GI Disorders: No Hx Family Genitourinary Disorders: No Hx Family Endocrine Disorder: Yes (DM) Hx Family Musculoskeletal Disorders: No Hx Family Neuromuscular Disorders: No Hx Family Neurologic Disorders: No Hx Family HEENT Disorders: No Hx Family Autoimmune Disorders: No Hx Family Reproductive Disorders: No Hx Family Psychosocial Disorders: No Hx Family Medical Disorders: No Internal Medicine - H&P: Meds Betamethasone Dipropionate 1 appl TP AD 10/17/17 [History] Buspirone HCl [Buspar] 15 mg PO TID PRN 10/17/17 [History] Meloxicam [Meloxicam] 7.5 mg PO DAILY 10/17/17 [History] Trazodone HCl 100 - 200 mg PO HS 10/17/17 [History] Venlafaxine HCl [Venlafaxine HCl ER] 75 mg PO DAILY 10/17/17 [History] clonazePAM [Klonopin] 1 mg PO TID PRN 10/17/17 [History] 3 Allergy/AdvReac Type Severity Reaction Status Date / Time fluconazole [From Diflucan] Allergy Redness of Verified 03/06/17 19:15 Skin oxcarbazepine Allergy Redness of Verified 03/06/17 19:15 [From Trileptal] Skin All Systems PM: A 10-system review of systems was performed and is negative for pertinent findings except as documented above in the HPI. - Constitutional Vitals: Temp Pulse Resp BP Pulse Ox 98.0 F 68 16 100/68 99 10/18/17 03:00 10/18/17 03:00 10/18/17 03:00 10/18/17 03:00 10/18/17 03:00 General appearance: Present: cooperative, A&O X 3, pleasant, no acute distress, answers questions appropriately - Head Head exam: Present: normal inspection - Eye Eye exam: Present: EOMI, normal appearance - Respiratory Respiratory exam: Present: CTAB. Absent: chest wall tenderness, respiratory distress, wheezes - Cardiovascular Cardiovascular exam: Present: RRR. Absent: diastolic murmur, systolic murmur - GI/Abdominal GI/Abdominal exam: Present: normal bowel sounds, soft. Absent: tenderness - Extremities Exam Extremities exam: Present: warm, radial pulses palpable and symmetrical. Absent : tenderness - Neurological Exam Neurological exam: Present: strengths equal and symetr throughout. Absent: motor sensory deficit, facial droop, speech deficit - Psychiatric Psychiatric exam: Present: suicidal ideation - Skin Skin exam: Present: dry, normal color, warm Internal Med - H&P Results - Labs CBC & Chem 7: 10/18/17 03:38 10/18/17 03:38 Labs: Short CBC 10/18/17 Range/Units 03:38 WBC 7.2 (4.3-11.1) K/mcL Hgb 12.8 D (11.5-15.4) g/dL Hct 38.4 (35.3-44.9) % Plt Count 145 (140-400) K/mcL BMP 10/18/17 03:38 Sodium 139 Potassium 4.0 Chloride 112 H Carbon Dioxide 23 BUN 10 Creatinine 0.67 Glucose 83 Calcium 8.4 L - Assessment and plan (1) Drug overdose, intentional Current Visit: Yes Status: Acute Assessment and plan: Patient attempted suicide by taking multiple pills. Poison control contacted from the emergency room, who recommended observation. Set Up Mold Technician in the morning once completed observation Holding home medications Qualifiers: Qualified Code(s): T50.902A - Poisoning by unspecified drugs, medicaments and biological substances, intentional self-harm, initial encounter (2) Suicide attempt Current Visit: Yes Status: Acute Assessment and plan: As above patient tried taking multiple pills in an apparent suicide attempt. Psych consult in the morning Suicide precautions - Time Spent With Patient Total time spent is greater than 50% in coordination of care (as documented) at patient's floor/unit and/or counseling patient: Greater than 35 minutes
[2017-10-18] MEDS ORDERED: Nicotine 21 MG PATCH.TD24 TD SCH (09:00)
--- NOTE | 2017-10-18 17:30 | Consult Note ---
Date of Encounter: 10/18/17 Time of Encounter: 17:00 Assessment & Recommendation (1) Anxiety about health Current visit: Yes Status: Acute (2) Major depressive disorder, recurrent severe without psychotic features Current visit: No Status: Acute (3) Borderline personality disorder Current visit: No Status: Chronic (4) Poisoning by benzodiazepines, intentional self-harm, subsequent encounter Current visit: Yes Status: Acute History of Present Illness Patient: known to practice within the last 3 years Requesting Physician: Estiven Delatorre MD Reason for consult: overdose History of present illness: Ms. Bridges is a 37 year old female The patient is a 37-year-old partnered white female. Chief complaint I had a bad day. History of present illness: The patient is previously seen for Ramiro. depression anxiety and borderline personality disorder. She is followed by Dr. Cervanets and was originally scheduled for a medical evaluation to review her medicines for her psychiatric disorder the patient reports that she has been given disability for an mood disorder not otherwise specified because it does not fill all the criteria. Recently the patient has become more nervous she has had menstrual issues and in bleeding between menstrual periods. The patient was scheduled for a biopsy and had an ultrasound. Procedures tend to make her nervous and she was can have a D&C with an application and removal of the fibroid. However Dr. Pendleton has not called her so she had a lot of anxiety about that. The patient was worried about her son he left home after high school and went to live with the patient's mother. When she tried to contact him or confronted her mother about how he was being raised this caused greater for cultures. The dynamic is between the patient her sister and her mother furthermore the patient 's partner named Reanna also got involved in this disagreement. When there were texts from the sister of a threatening or demeaning nature on the patient went to the cabinet took about 20-25 Klonopin swallowed him down in [place] sent back there I have got. The patient denies that she is planning to kill herself she sought help soon after and called the inpatient psychiatric unit she was advised to come to the ER otherwise the squad would be sent for her safety. The patient did present to the ER where she was treated. The patient's hospital course is been difficult in that the patient did not have a medically lethal overdose but was either disinhibited or very angry over a delay in getting her cough she felt that she was not getting the attention that she deserved. And a behavior code was called. The patient's been hospitalized at [facility] the [facility], . The patient has requested a private room. The patient was not thinking about overdose and this was a impulsive act. The patient reports that she is currently on Effexor clonazepam trazodone meloxicam and [place] for arthritis. The patient sees Dr. Otoole was scheduled with a nurse practitioner and has a counselor Krista Joe. Recently the patient learned that her son is working doing double shifts and not involved in drugs or alcohol police to the extent that she was worried about. The patient has ongoing pain issues and does get some pain injections. The patient was placed under a pink slip and ongoing behavior suggests that she may require further monitoring and will need a sitter. The patient is willing to consider coming in under an observation status she reports to me that she does not have suicidal ideation or plan however she does have a psychiatric disorder may need adjustment. Furthermore the patient's benzodiazepines may need to be restarted and reviewed. The patient had a brief exam and there was no nystagmus, no dysdiadochokinesis and no dysmetria. The patient had no dysarthria CC: Estiven Delatorre MD Past Med Surg Social Fam HX - Past Medical History Medical history: non-contributory - Past Psychiatric History Psychiatric history: Reports: anxiety, depression, previous psychiatric hospitalization Family psychiatric history: Yes - Past Surgical History Surgical History: non-contributory, cholecystectomy, orthopedic, other - Social History Smoking Status: Current every day smoker Smokeless Tobacco Status: No Alcohol use: none Drug use: none Occupational status: disabled Current living situation: Home - Independent, Home, Other Activity Level: Independent ambulation Recent Out of Country Travel Within the Last 8 Weeks: No Exposure or Possible Exposure to Illness During Travel: No - Family History Father Adopted: [place]: JEAN-PAUL Family Member Ethnicity: Non- Living Status: Age at : 68 Cause of : LUNG CANCER Hx Family Cardiac Disorders: Yes (HEART DISEASE) Hx Family Respiratory Disorders: No Hx Family Cancer: Yes (LUNG CA) Hx Family GI Disorders: No Hx Family Genitourinary Disorders: No Hx Family Endocrine Disorder: Yes (DM) Hx Family Musculoskeletal Disorders: No Hx Family Neuromuscular Disorders: No Hx Family Neurologic Disorders: No Hx Family HEENT Disorders: No Hx Family Autoimmune Disorders: No Hx Family Reproductive Disorders: No Hx Family Psychosocial Disorders: No Hx Family Medical Disorders: No Medications & Allergies Betamethasone Dipropionate 1 appl TP AD 10/17/17 [History] Buspirone HCl [Buspar] 15 mg PO TID PRN 10/17/17 [History] Meloxicam [Meloxicam] 7.5 mg PO DAILY 10/17/17 [History] Trazodone HCl 100 - 200 mg PO HS 10/17/17 [History] Venlafaxine HCl [Venlafaxine HCl ER] 75 mg PO DAILY 10/17/17 [History] clonazePAM [Klonopin] 1 mg PO TID PRN 10/17/17 [History] 3 Allergy/AdvReac Type Severity Reaction Status Date / Time fluconazole [From Diflucan] Allergy Redness of Verified 03/06/17 19:15 Skin oxcarbazepine Allergy Redness of Verified 03/06/17 19:15 [From Trileptal] Skin Review of Systems Psychiatric: Reports: anxiety, hopelessness, irritability, mood swings Psychiatry Exam - Constitutional Vitals: Temp Pulse Resp BP Pulse Ox 98.4 F 71 15 101/68 99 10/18/17 13:36 10/18/17 13:36 10/18/17 13:36 10/18/17 13:36 10/18/17 13:36 General appearance: age & developmentally appropriate, well-groomed, well- nourished, thin - Psychiatric Patient Orientation: Yes Person, Yes Time, Yes Place, Yes Circumstance Level of alertness: Alert Behavior: guarded, withdrawn Psychomotor activity: Slowed Eye Contact: Maintains Eye Contact Mood Description: Anxious Affect description: dysphoric Speech Volume: Soft/Quiet Speech pattern: slowed Language & Vocabulary: consistent with education Thought Process: Intact Thought Content: Yes Preoccupation, Yes Guilt Perceptual Disturbances: Yes Reacting to internal stimuli Attention Span Ability: Capable of Sustained Attention Memory Description: Grossly Intact Patient Reliability: Questionable Historian Fund of knowledge: Yes above average Intelligence Estimate: Average Judgment: Limited Insight: Minimal Results - Labs Labs: Laboratory Last Values WBC 7.2 K/mcL (4.3-11.1) 10/18/17 03:38 RBC 4.36 M/mcL (3.82-4.97) 10/18/17 03:38 Hgb 12.8 g/dL (11.5-15.4) D 10/18/17 03:38 Hct 38.4 % (35.3-44.9) 10/18/17 03:38 MCV 88.1 fL (83.0-100.0) 10/18/17 03:38 MCH 29.4 pg (28.0-33.3) 10/18/17 03:38 MCHC 33.3 g/dL (31.6-35.5) 10/18/17 03:38 RDW 12.7 % (11.5-14.5) 10/18/17 03:38 Plt Count 145 K/mcL (140-400) 10/18/17 03:38 MPV 10.4 fL (9.4-12.4) 10/18/17 03:38 Immature Gran % 0.3 % (0-4) 10/17/17 20:20 Seg Neutrophils % 54.6 % 10/17/17 20:20 Lymphocytes % 35.1 % 10/17/17 20:20 Monocytes % 8.3 % 10/17/17 20:20 Eosinophils % 0.9 % 10/17/17 20:20 Basophils % 0.8 % 10/17/17 20:20 Neutrophils # 4.4 K/mcL (1.6-8.9) 10/17/17 20:20 Lymphocytes # 2.8 K/mcL (0.6-4.6) 10/17/17 20:20 Monocytes # 0.7 K/mcL (0.0-1.3) 10/17/17 20:20 Eosinophils # 0.1 K/mcL (0.0-0.6) 10/17/17 20:20 Basophils # 0.1 K/mcL (0.0-0.2) 10/17/17 20:20 Sodium 139 mEq/L (136-145) 10/18/17 03:38 Potassium 4.0 mEq/L (3.5-5.1) 10/18/17 03:38 Chloride 112 mEq/L (98-107) H 10/18/17 03:38 Carbon Dioxide 23 mEq/L (23-29) 10/18/17 03:38 BUN 10 mg/dL (6-20) 10/18/17 03:38 Creatinine 0.67 mg/dL (0.60-1.20) 10/18/17 03:38 Est GFR ( Amer) > 60 (> 60) 10/18/17 03:38 Est GFR (Non-Af Amer) > 60 (> 60) 10/18/17 03:38 BUN/Creatinine Ratio 15 (6-26) 10/18/17 03:38 Glucose 83 mg/dL (70-105) 10/18/17 03:38 Calculated Osmolality 286 (280-300) 10/18/17 03:38 Calcium 8.4 mg/dL (8.6-10.3) L 10/18/17 03:38 Total Bilirubin 0.6 mg/dL (0.3-1.0) 10/17/17 20:20 Direct Bilirubin 0.1 mg/dL (0.0-0.2) 10/17/17 20:20 Indirect Bilirubin 0.5 mg/dL (0.0-1.2) 10/17/17 20:20 AST 17 Units/L (13-39) 10/17/17 20:20 ALT 16 Units/L (7-52) 10/17/17 20:20 Alkaline Phosphatase 65 Units/L (34-104) 10/17/17 20:20 Serum Total Protein 6.5 g/dL (6.4-8.9) 10/17/17 20:20 Albumin 4.2 g/dL (3.5-5.7) 10/17/17 20:20 Globulin 2.3 g/dL (2.4-3.5) L 10/17/17 20:20 Albumin/Globulin Ratio 1.8 (1.1-2.2) 10/17/17 20:20 Urine Color Yellow (Yellow) 10/17/17 21:00 Urine Clarity Clear (Clear) 10/17/17 21:00 Urine pH 6.0 pH Units (5.0-8.0) 10/17/17 21:00 Ur Specific [place] 1.022 (1.010-1.025) 10/17/17 21:00 Urine Protein 30 mg/dL (Neg-Trace) H 10/17/17 21:00 Urine Glucose (UA) Normal mg/dL (Normal) 10/17/17 21:00 Urine Ketones Negative mg/dL (Negative) 10/17/17 21:00 Urine Blood Negative (Negative) 10/17/17 21:00 Urine Nitrite Negative (Negative) 10/17/17 21:00 Urine Bilirubin Small (Negative) H 10/17/17 21:00 Urine Urobilinogen Normal mg/dL (Normal) 10/17/17 21:00 Ur Leukocyte Esterase Negative (Negative) 10/17/17 21:00 Urine Microscopic RBC 3-5 per hpf (0-3) H 10/17/17 21:00 Urine Microscopic WBC 0-3 per hpf (0-3) 10/17/17 21:00 Ur Squamous Epith Cells Many per lpf (None-Few) H 10/17/17 21:00 Urine Bacteria None Seen per hpf (None-Few) 10/17/17 21:00 Hyaline Casts None Seen per lpf (None-Few) 10/17/17 21:00 Urine Test Negative (Negative) 10/17/17 21:00 Salicylates < 2.5 mg/dL (15.0-30.0) L 10/17/17 20:20 Urine Opiates Screen Positive ng/mL (Nymmpz=750) H 10/17/17 20:20 Acetaminophen < 10 mcg/mL (10-20) L 10/17/17 20:20 Ur Barbiturates Screen Negative ng/mL (Liyjmc=293) 10/17/17 20:20 Ur Phencyclidine Scrn Negative ng/mL (Cutoff=25) 10/17/17 20:20 Ur Amphetamines Screen Negative ng/mL (Iwrlyl=8818) 10/17/17 20:20 U Benzodiazepines Scrn Positive ng/mL (Mrzvff=871) H 10/17/17 20:20 Urine Cocaine Screen Negative ng/mL (Cutoff= 300) 10/17/17 20:20 U Marijuana (THC) Screen Negative ng/mL (Cutoff = 50) 10/17/17 20:20 Ur Drug Screen Interp See Below 10/17/17 20:20 Ethyl Alcohol < 10 mg/dL (Less than 10) 10/17/17 20:20 Consult Discharge Plan - Plan Referrals: Gianna Green MD [Partnered Physician] - Stephania Walton [Resident] -
[2017-10-18 17:53] VITALS: BP 108/76
--- NOTE | 2017-10-18 18:10 | Discharge Summary ---
- NOTES TO OUTPATIENT PROVIDER Notes to Outpatient Provider: will need outpatient follow up with mental health Orders not resulted at time of discharge: Pending orders 10/18/17 11:22 EKG [ECG 12 lead ECG] [ECG] Stat Date of Encounter: 10/18/17 Time of Encounter: 18:01 - Discharge Diagnosis (1) Drug overdose, intentional Priority: Primary Status: Acute Qualifiers: Encounter type: initial encounter Qualified Code(s): T50.902A - Poisoning by unspecified drugs, medicaments and biological substances, intentional self- harm, initial encounter (2) Suicide attempt Priority: Secondary Status: Acute Hospital course: Ms. Bridges is a 37 year old female past medical history of prior suicide attempts previous psychiatric hospitalizations borderline personality disorder. The patient did have a verbal confrontation over the phone with her sister concerning her son. She became distraught and went to the And took approximately 20-25 Klonopin Ativan as well as trazodone. Significant other was present during the incident and did call EMS. She was brought to the emergency room for evaluation poison control was notified and patient was pink slipped, monitored overnight. Lab work has been unremarkable EKGs with no abnormalities noted. Patient is alert and appropriate following commands. This a.m. patient became agitated because she wanted coffee she became violent and a behavior code was called. Patient eventually did calm down once she received coffee. Psychiatry was consulted and did see patient advised inpatient evaluation. I did review the case with poison control patient is medically cleared at this time and is ready for discharge Discharge discussed with: patient - Time Spent with Patient Total time spent providing and/or coordinating discharge services: - Discharge Medications Home Medications: Betamethasone Dipropionate 1 appl TP AD 10/17/17 [History] Buspirone HCl [Buspar] 15 mg PO TID PRN 10/17/17 [History] Meloxicam [Meloxicam] 7.5 mg PO DAILY 10/17/17 [History] Trazodone HCl 100 - 200 mg PO HS 10/17/17 [History] Venlafaxine HCl [Venlafaxine HCl ER] 75 mg PO DAILY 10/17/17 [History] clonazePAM [Klonopin] 1 mg PO TID PRN 10/17/17 [History] Allergies/Adverse Reactions: 3 Allergy/AdvReac Type Severity Reaction Status Date / Time fluconazole [From Diflucan] Allergy Redness of Verified 03/06/17 19:15 Skin oxcarbazepine Allergy Redness of Verified 03/06/17 19:15 [From Trileptal] Skin Date of admission: 10/17/17 22:49 Primary care physician: PCP NONE Consults: 10/18/17 02:30 Consult to Psychiatry [CONS] Routine Consulting Provider: Psychiatry Kaela Reason consult: [place] slip on chart [place] Slip initiated date and time: 10/17 2099 Discharging clinician: Sharita Bruce Anticipated date of discharge: 10/18/17 - Constitutional Vitals: Temp Pulse Resp BP Pulse Ox 98.3 F 72 16 108/76 99 10/18/17 17:52 10/18/17 17:52 10/18/17 17:52 10/18/17 17:52 10/18/17 17:52 General appearance: Present: cooperative, A&O X 3, pleasant, no acute distress, answers questions appropriately - Head Head exam: Present: atraumatic, normocephalic - Eye Eye exam: Present: PERRL, conjuntiva pink, sclera anicteric Pupils: Present: PERRL - Neck Neck exam general surgery: Present: supple, trachea midline. Absent: lymphadenopathy - Respiratory Respiratory exam: Present: CTAB. Absent: accessory muscle use, rales, rhonchi, wheezes - Cardiovascular Cardiovascular exam: Present: RRR, +S1, +S2. Absent: diastolic murmur, gallop, rubs, systolic murmur - GI/Abdominal GI/Abdominal exam: Present: normal bowel sounds, soft, no peritoneal signs. Absent: distended, tenderness - Extremities Exam Extremities exam: Present: warm, radial pulses palpable and symmetrical. Absent : calf tenderness, cyanotic, pedal edema - Neurological Exam Neurological exam: Present: CN II-XII intact, oriented X3, no focal deficits. Absent: pronater drift, facial droop, speech deficit - Skin Skin exam: Present: dry, intact - Patient Status Disposition: Transfer Psychiatric Hosp Condition: Fair Functional capacity at discharge: independent ambulation Overall status at discharge: patient is back to baseline - Discharge Instructions Follow Up With: Gianna Green MD [Partnered Physician] - Stephania Walton [Resident] - - Diet and Activity Activity: resume usual activities as tolerated Diet: advance to your usual diet
--- NOTE | 2017-10-18 18:14 | Event Note ---
Date of Encounter: 10/18/17 Time of Encounter: 08:15 At approximately 8:15 AM this morning code chaunecy was called due to patient aggressively acting out toward nursing staff. Patient was on one-to-one observation due to suicide attempt. Patient was requesting coffee and when she was told she had weight for the physician to evaluate her prior to coffee she became upset and aggressive toward staff. Patient was striking out and kicking she was restrained with soft restraints. Eventually she did calm down once she was given a cup of coffee and was more cooperative. Restraints were then discontinued
--- NOTE | 2017-10-19 20:34 | Electrocardiograph Report ---
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
--- NOTE | 2017-10-19 20:48 | Electrocardiograph Report ---
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
== END 2017-10-18 19:54 ==
LOC: EMEROO 20:12 → 3BNU 20:12
PROVIDERS: ADMIT Family Medicine; ATTEND Family Medicine

== ENCOUNTER → 2017-10-19 12:37 | Observation (INO) ==
[2017-10-19 09:47] VITALS: BP 97/70
--- NOTE | 2017-10-19 11:28 | Discharge Summary ---
Date of Encounter: 10/19/17 Time of Encounter: 11:00 History of Present Illness Chief complaint: I almost Admitted From: Intrahospital Transfer History of Present Illness: Ms. Bridges is a 37 year old female The patient is a 37-year-old partnered female. 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 She is at multiple suicide attempts she has had previous psychiatric hospitalizations. The most recent suicide attempt was an impulsive and precipitated event. She got in an argument with her sister about her son. She had a series of text messages and became upset and impulsively took Ativan clonazepam on other medicines out. It is estimated that there were 20-25 clonazepam. The patient took this overdose she called the unit to say she had taken an overdose and was advised to go to the emergency room. There she was admitted to the floor and treated with supportive care on the medical unit. Psychiatric consultation on the medical unit revealed the patient did not have suicidal ideation at that time but may need a med adjustment and given her history and impulsivity observation status was warranted she remained under a pink slip and was observed overnight on the locked psychiatric unit. She did well and did not show significant benzodiazepine withdrawal however the patient is receiving clonazepam from her pain physician Dr. Oneil.. She reports sacral pain and has received injections for this. Unfortunately the patient consumed all of the clonazepam and the state pharmacy report was checked it revealed that the patient is unlikely to have a refill of this medicine until 11/16/2017. The patient wished to remain on her other medicines and these were continued during the hospital stay. In the past the patient has been on [place] and this is led to concerns about drug drug interactions between opiates and benzodiazepines. The patient has seen a counselor named Krista at [facility]. The patient was seen on the day of discharge and had an adequate plan for follow -up with close monitoring by the [facility]. Given that she was out of a nasal Krista and that this prescription would not be filled diazepam was substituted. The patient was educated on borderline personality disorder major depression and the possibility of drug drug interactions. She verbalizes understanding. Past Med Surg Social Fam HX - Past Medical History Source: patient Medical history: arthritis - Past Psychiatric History Psychiatric history: Reports: depression, prior suicide attempt, previous psychiatric hospitalization Family psychiatric history: Unknown Family History of Suicide: Unknown - Past Surgical History Surgical History: non-contributory, cholecystectomy, orthopedic, other - Social History Smoking Status: Current every day smoker Smokeless Tobacco Status: No Alcohol use: none Drug use: none Occupational status: disabled Current living situation: Home - Independent, With Family Recent Out of Country Travel Within the Last 8 Weeks: No Exposure or Possible Exposure to Illness During Travel: No - Family History Father Adopted: No Family Member Ethnicity: Non- Living Status: Hx Family Cardiac Disorders: Yes (HEART DISEASE) Hx Family Respiratory Disorders: No Hx Family Cancer: Yes (lung) Hx Family GI Disorders: No Hx Family Endocrine Disorder: Yes (DM) Hx Family Neuromuscular Disorders: No Hx Family Neurologic Disorders: No Hx Family HEENT Disorders: No Hx Family Autoimmune Disorders: No Medications - Discharge Medications Betamethasone Dipropionate 1 appl TP AD 10/17/17 [History] Buspirone HCl [Buspar] 15 mg PO TID PRN 10/17/17 [History] Meloxicam 7.5 mg PO DAILY 10/17/17 [History] Trazodone HCl 100 - 200 mg PO HS 10/17/17 [History] Venlafaxine HCl [Venlafaxine HCl ER] 75 mg PO DAILY 10/17/17 [History] clonazePAM [Klonopin] 1 mg PO TID PRN 10/17/17 [History] 3 Allergy/AdvReac Type Severity Reaction Status Date / Time fluconazole [From Diflucan] Allergy Redness of Verified 03/06/17 19:15 Skin oxcarbazepine Allergy Redness of Verified 03/06/17 19:15 [From Trileptal] Skin Review of Systems Psychiatric: Reports: depression, anxiety, mood swings Exam - HEENT Head exam IM: Present: atraumatic Eye exam IM: Present: EOMI ENT exam IM: Present: mucous membranes dry - Neurological Neurological exam: Present: CN II-XII intact - Extremities Extremities exam IM: Present: full ROM - Skin Skin exam IM: Present: warm - Constitutional Vitals: Temp Pulse Resp BP 98 F 97 16 97/70 10/19/17 09:47 10/19/17 09:47 10/19/17 09:47 10/19/17 09:47 General appearance: age & developmentally appropriate, well-groomed, thin - Musculoskeletal Gait: slow Strength & Tone: normal for patient - Psychiatric Patient Orientation: Yes Person, Yes Time, Yes Place Level of alertness: Alert Behavior: calm, cooperative Psychomotor activity: Normal Eye Contact: Maintains Eye Contact Mood Description: Anxious Affect description: congruent with mood, full range, anxious Speech Volume: Normal Speech pattern: normal rate, normal rhythm, normal tone, fluent, spontaneous Language & Vocabulary: consistent with education Thought Process: Linear, Goal Oriented Thought Content: No Suicidal ideation, No Homicidal ideation, No Overt delusions Perceptual Disturbances: No Auditory hallucinations, No Visual hallucinations Attention Span Ability: Capable of Focused Attention Memory Description: Grossly Intact Patient Reliability: Reliable Historian Fund of knowledge: Yes abstraction ability, Yes average, Yes aware of current events Intelligence Estimate: Average Judgment: Fair Insight: Partial Diagnosis - Discharge Diagnosis (1) Anxiety about health Status: Acute (2) Benzodiazepine (tranquilizer) overdose Status: Resolved Qualifiers: Encounter type: sequela Injury intent: intentional self-harm Qualified Code(s): T42.4X2S - Poisoning by benzodiazepines, intentional self-harm, sequela (3) Major depressive disorder, recurrent severe without psychotic features Status: Acute (4) Suicidal ideation Status: Resolved Assessment and Plan - Patient/Caregiver Discharge Instructions Activity: resume usual activities as tolerated Diet: regular diet - Follow up Plan Follow up with: Stephania Walton [Resident] - 10/25/17 9:00 am (The above appointment is with Stephania Walton, for psychiatric assessment and medication management. Please bring photo ID and insurance card. Call 24 hours in advance for cancellations.) Functional capacity at discharge: independent ambulation Overall status at discharge: Stable Disposition: Home, Self-Care Provider Date of admission: 10/18/17 19:56 Primary care physician: PCP NONE Discharging clinician: Royer Kenney Hospital Course Hospital course: Ms. Bridges is a 37 year old female - Time Spent with Patient Total time spent providing and/or coordinating discharge services: Quality - Multiple Antipsychotics Patient discharged on 2 or more antipsychotic medications: No
[~2017-10-19 12:37] MED LIST: *HR* LORazepam 1 MG TABLET PO PRN; *HR* LORazepam 2 MG/ML VIAL IM PRN; Haloperidol Lactate 5 MG/ML VIAL IM PRN; Ibuprofen 400 MG TABLET PO PRN; MOM Conc 10 ML UD.LIQ PO PRN; Mag Hydrox/Al Hydrox/Simeth 30 ML UDC PO PRN; Nicotine 14 MG PATCH.TD24 TD SCH; Venlafaxine XR (24 HR) 75 MG CAP.ER.24H PO SCH; hydrOXYzine pamoate 25 MG CAPSULE PO PRN; traZODone 50 MG TABLET PO SCH
== END | disposition home or self-care (01) ==
LOC: 1ANU
PROVIDERS: ADMIT Psychiatry & Neurology Forensic Psychiatry; ATTEND Psychiatry & Neurology Forensic Psychiatry